=== PATIENT | male | born 1960 | race Caucasian/White ===

== ENCOUNTER 2018-11-30 08:04 | Emergency (ER) | payer SELFPAY ==
[2018-11-30] MEDS ORDERED: Sodium Chloride 0.9% 1,000 ML IV ONE (08:07)
[2018-11-30] MEDS ORDERED: Ketorolac 30 MG/ML SDV IVPUSH ONE (08:07)
[2018-11-30] MEDS ORDERED: Ondansetron 4 MG/2 ML SDV IVPUSH ONE (08:07)
--- NOTE | 2018-11-30 08:08 | EDM.PDOC ---
ED HPI GENERAL MEDICAL PROBLEM - General Chief Complaint: Flank Pain Stated Complaint: STOMACH/SIDE PAIN Time Seen by Provider: 11/30/18 08:07 Source of Information: Reports: Patient - History of Present Illness INITIAL COMMENTS - FREE TEXT/NARRATIVE: HISTORY AND PHYSICAL: History of present illness: [A shunt presents with left lower quadrant pain 5 out of 10 radiating to the left flank worsened by movement better at rest had normal formed stool yesterday no fever nausea vomiting chills sweats no chest pain shortness breath headache dizziness palpitation no bowel or urine symptoms ] Review of systems: As per history of present illness and below otherwise all systems reviewed and negative. Past medical history: As per history of present illness and as reviewed below otherwise noncontributory. Surgical history: As per history of present illness and as reviewed below otherwise noncontributory. Social history: No reported history of drug or alcohol abuse. Family history: As per history of present illness and as reviewed below otherwise noncontributory. Physical exam: HEENT: Atraumatic, normocephalic, pupils reactive, negative for conjunctival pallor or scleral icterus, mucous membranes moist, throat clear, neck supple, nontender, trachea midline. Lungs: Clear to auscultation, breath sounds equal bilaterally, chest nontender. Heart: S1S2, regular, negative for clicks, rubs, or JVD. Abdomen: Soft, nondistended, nontender. Negative for masses or hepatosplenomegaly. Negative for costovertebral tenderness. Pelvis: Stable nontender. Genitourinary: Deferred. Rectal: Deferred. Extremities: Atraumatic, negative for cords or calf pain. Neurovascular unremarkable. Neuro: Awake, alert, oriented. Cranial nerves II through XII unremarkable. Cerebellum unremarkable. Motor and sensory unremarkable throughout. Exam nonfocal. Diagnostics: []CBC CMP troponin lipase UA with culture Abdomen pelvis no contrast CT Therapeutics: []Renal saline Toradol Zofran Reglan Hydrochlorothiazide Line Vasotec I.V. MiraLAX Gas-X Reglan The counter symptomatic therapy such as fleets glycerin suppositories symmetrical Cipro 500 mg by mouth twice a day Impression: abdominal pain High blood pressure Definitive disposition and diagnosis as appropriate pending reevaluation and review of above. Left Lower Abdomen Pain Score (Numeric/FACES): 10 - Related Data Allergies Allergy/AdvReac Type Severity Reaction Status Date / Time Penicillins Allergy Other Verified 11/30/18 08:20 Home Meds: Home Meds Omeprazole 20 mg PO DAILY 11/30/18 [History] ED ROS GENERAL - Review of Systems Review Of Systems: See Below ED EXAM, GENERAL - Physical Exam Exam: See Below Course - Vital Signs Last Recorded V/S: Last Vital Signs Temp 96.1 F 11/30/18 08:15 Pulse 110 H 11/30/18 08:15 Resp 20 11/30/18 08:15 BP 150/118 H 11/30/18 10:03 Pulse Ox 99 11/30/18 08:15 - Orders/Labs/Meds Orders: Active Orders 24 hr Category Date Time Status CULTURE URINE [RM] Stat Lab 11/30/18 08:57 Received Labs: Laboratory Tests 11/30/18 11/30/18 11/30/18 Range/Units 08:23 08:23 08:57 WBC 6.97 (4.0-11.0) K/uL RBC 4.59 (4.50-5.90) M/uL Hgb 15.7 (13.0-17.0) g/dL Hct 44.3 (38.0-50.0) % MCV 96.5 (80.0-98.0) fL MCH 34.2 H (27.0-32.0) pg MCHC 35.4 (31.0-37.0) g/dL RDW Std Deviation 44.0 (28.0-62.0) fl RDW Coeff of Donnie 13 (11.0-15.0) % Plt Count 220 (150-400) K/uL MPV 9.20 (7.40-12.00) fL Neut % (Auto) 52.4 (48.0-80.0) % Lymph % (Auto) 35.3 (16.0-40.0) % Dooly % (Auto) 10.3 (0.0-15.0) % Eos % (Auto) 1.6 (0.0-7.0) % Baso % (Auto) 0.4 (0.0-1.5) % Neut # (Auto) 3.7 (1.4-5.7) K/uL Lymph # (Auto) 2.5 H (0.6-2.4) K/uL Dooly # (Auto) 0.7 (0.0-0.8) K/uL Eos # (Auto) 0.1 (0.0-0.7) K/uL Baso # (Auto) 0.0 (0.0-0.1) K/uL Nucleated RBC % 0.0 /100WBC Nucleated RBCs # 0 K/uL Sodium 137 (136-148) mmol/L Potassium 3.8 (3.5-5.1) mmol/L Chloride 102 (98-107) mmol/L Carbon Dioxide 21.4 (21.0-32.0) mmol/L BUN 11 (7.0-18.0) mg/dL Creatinine 1.0 (0.8-1.3) mg/dL Est Cr Clr Drug Dosing 66.38 mL/min Estimated GFR (MDRD) > 60.0 ml/min Glucose 103 (74-106) mg/dL Calcium 9.5 (8.5-10.1) mg/dL Total Bilirubin 0.7 (0.2-1.0) mg/dL AST 35 (15-37) IU/L ALT 46 (14-63) IU/L Alkaline Phosphatase 57 (46-116) U/L Troponin I < 0.050 (0.000-0.056) ng/mL Total Protein 7.9 (6.4-8.2) g/dL Albumin 3.9 (3.4-5.0) g/dL Globulin 4.0 (2.6-4.0) g/dL Albumin/Globulin Ratio 1.0 (0.9-1.6) Lipase 75 (73-393) U/L Urine Color YELLOW Urine Appearance CLEAR Urine pH 5.5 (5.0-8.0) Ur Specific Goff 1.010 (1.001-1.035) Urine Protein NEGATIVE (NEGATIVE) mg/dL Urine Glucose (UA) NEGATIVE (NEGATIVE) mg/dL Urine Ketones NEGATIVE (NEGATIVE) mg/dL Urine Occult Blood NEGATIVE (NEGATIVE) Urine Nitrite NEGATIVE (NEGATIVE) Urine Bilirubin NEGATIVE (NEGATIVE) Urine Urobilinogen 0.2 (<2.0) EU/dL Ur Leukocyte Esterase NEGATIVE (NEGATIVE) Urine RBC 0-1 (0-2/HPF) Urine WBC 0-1 (0-5/HPF) Ur Epithelial Cells RARE (NONE-FEW) Urine Bacteria RARE (NEGATIVE) Urine Mucus LIGHT (NONE-MOD) Meds: Medications Discontinued Medications Generic Name Dose Route Start Last Admin Trade Name Yessica PRN Reason Stop Dose Admin Enalaprilat 1.25 mg 11/30/18 09:22 11/30/18 10:03 Vasotec Iv IVPUSH 11/30/18 09:23 1.25 mg ONETIME ONE Administration Hydrochlorothiazide 25 mg 11/30/18 09:23 11/30/18 10:00 Hydrochlorothiazide PO 11/30/18 09:24 25 mg ONETIME ONE Administration Sodium Chloride 1,000 mls @ 999 mls/hr 11/30/18 08:07 11/30/18 08:50 Normal Saline IV 11/30/18 09:07 999 mls/hr STAT ONE Administration Ketorolac Tromethamine 30 mg 11/30/18 08:07 11/30/18 08:24 Toradol IVPUSH 11/30/18 08:08 30 mg ONETIME ONE Administration Metoclopramide HCl 10 mg 11/30/18 09:23 11/30/18 10:01 Reglan IV 11/30/18 09:24 10 mg ONETIME ONE Administration Ondansetron HCl 8 mg 11/30/18 08:07 11/30/18 08:24 Zofran IVPUSH 11/30/18 08:08 8 mg ONETIME ONE Administration Departure - Departure Time of Disposition: 10:09 Disposition: Home, Self-Care 01 Condition: Good Clinical Impression: Abdominal pain - Discharge Information Referrals: PCP,Unknown [Primary Care Provider] - Forms: ED Department Discharge Additional Instructions: Medication as prescribed MiraLAX 17 g by mouth daily may benefit as far as helping moving bowels Fleets enemas or glycerin suppositories can assist with bowel movement Gas-X 4 times daily as needed return to ER if symptoms persist or worsen or if new concerning symptoms develop All up with primary care in 2 weeks recheck blood pressure [facility] [address] [place] [id number] The following information is given to patients seen in the emergency department who are being discharged to home. This information is to outline your options for follow-up care. We provide all patients seen in our emergency department with a follow-up referral. The need for follow-up, as well as the timing and circumstances, are variable depending upon the specifics of your emergency department visit. If you don't have a primary care physician on staff, we will provide you with a referral. We always advise you to contact your personal physician following an emergency department visit to inform them of the circumstance of the visit and for follow-up with them and/or the need for any referrals to a consulting specialist. The emergency department will also refer you to a specialist when appropriate. This referral assures that you have the opportunity for follow-up care with a specialist. All of these measure are taken in an effort to provide you with optimal care, which includes your follow-up. Under all circumstances we always encourage you to contact your private physician who remains a resource for coordinating your care. When calling for follow-up care, please make the office aware that this follow-up is from your recent emergency room visit. If for any reason you are refused follow-up, please contact the [facility] emergency department at and asked to speak to the emergency department charge nurse. - My Orders Last 24 Hours: My Active Orders 11/30/18 08:57 CULTURE URINE [RM] Stat - Assessment/Plan Last 24 Hours: My Active Orders 11/30/18 08:57 CULTURE URINE [RM] Stat
[2018-11-30 09:02] LABS: CHLORIDE,CL 102 mmol/L (98-107); SODIUM,NA 137 mmol/L (136-148)
--- NOTE | 2018-11-30 09:14 | CT ---
CT of the abdomen and pelvis without contrast. HISTORY: Pain TECHNIQUE: Axial CT images were obtained of the abdomen and pelvis without contrast. Coronal and sagittal reconstructions obtained. FINDINGS: The lung bases are clear, no pleural effusion. Tiny hypodensity noted within the dome of the liver, too small to fully characterized. The liver, spleen, adrenal glands, and pancreas otherwise appear unremarkable for noncontrast examination. The gallbladder appears normal. There is no bulky retroperitoneal lymphadenopathy. No abdominal ascites. There are no calcifications noted within the kidneys or along the courses of the ureters bilaterally. The large and small bowel are normal in caliber without evidence of obstruction. The appendix appears normal. There is no bulky pelvic lymphadenopathy. No free fluid. No free air. The urinary bladder appears normal. The visualized osseous structures appear normal. IMPRESSION: No acute findings within the abdomen or pelvis.
[2018-11-30] MEDS ORDERED: Enalaprilat 1.25 MG/ML SDV IVPUSH ONE (09:22)
[2018-11-30] MEDS ORDERED: Hydrochlorothiazide 25 MG Tab PO ONE (09:23)
[2018-11-30] MEDS ORDERED: Metoclopramide 10 MG/2 ML SDV IV ONE (09:23)
== END 2018-11-30 10:35 | disposition home or self-care (01) ==
LOC: MW.ED 08:04
DX: R10.32 Left lower quadrant pain (principal); I10 Essential (primary) hypertension; Z88.0 Allergy status to penicillin; Z79.899 Other long term (current) drug therapy
CPT/HCPCS: 36415; 74176; 80053; 81001; 83690; 84484; 85025; 87086; 96361; 96374; 96375; 99284; A9270; J1885; J2405; J2765; J7040; 99283

== ENCOUNTER 2019-01-04 06:12 | Day surgery (SDC) | payer OTHER ==
[~2019-01-04 06:12] MED LIST: Lactated Ringers 1,000 ML IV SCH
--- NOTE | 2019-01-04 07:30 | PCM.PREANE ---
Preanesthetic Assessment - Anesthesia/Transfusion/Family Hx Anesthesia History: Prior Anesthesia Without Reaction Family History of Anesthesia Reaction: No Transfusion History: No Prior Transfusion(s) Intubation History: Unknown - Review of Systems General: No Symptoms Pulmonary: No Symptoms Cardiovascular: No Symptoms Gastrointestinal: Abdominal Pain (flank pain), Other (brother had colon cancer) Neurological: No Symptoms Other: Reports: None - Physical Assessment NPO Status Date: 01/03/19 NPO Status Time: 18:32 O2 Sat by Pulse Oximetry: 97 Respiratory Rate: 18 Vital Signs: Last Vital Signs Temp 35.7 C 01/04/19 07:02 Pulse 82 01/04/19 07:02 Resp 18 01/04/19 07:02 BP 162/114 H 01/04/19 07:02 Pulse Ox 97 01/04/19 07:02 Height: 1.6 m Weight: 78.018 kg ASA Class: 2 Mental Status: Alert & Oriented x3 Airway Class: Mallampati = 2 Dentition: Reports: Missing Tooth/Teeth (most of the this upper and lower missing) Thyro-Mental Finger Breadths: 3 Mouth Opening Finger Breadths: 3 ROM/Head Extension: Full Lungs: Clear to Auscultation, Normal Respiratory Effort Cardiovascular: Regular Rate, Regular Rhythm - Allergies Allergies/Adverse Reactions: Allergies Allergy/AdvReac Type Severity Reaction Status Date / Time Penicillins Allergy Other Verified 01/02/19 15:29 - Blood Blood Available: No - Anesthesia Plan Pre-Op Medication Ordered: None - Acknowledgements Anesthesia Type Planned: MAC Pt an Appropriate Candidate for the Planned Anesthesia: Yes Alternatives and Risks of Anesthesia Discussed w Pt/Guardian: Yes Pt/Guardian Understands and Agrees with Anesthesia Plan: Yes PreAnesthesia Questionnaire HEENT History: Reports: Other (See Below) Other HEENT History: wears glasses Cardiovascular History: Reports: Hypertension Gastrointestinal History: Reports: GERD Musculoskeletal History: Reports: Osteoarthritis - Past Surgical History HEENT Surgical History: Reports: Eye Surgery Other HEENT Surgeries/Procedures: hx of left eye muscle surgery Other Dermatological Surgeries/Procedures: I&D of infection above knee - SUBSTANCE USE Smoking Status *Q: Current Every Day Smoker (1/2 ppd, trying to quit, no cigarettes last 2 days) Tobacco Use Within Last Twelve Months: Cigarettes Recreational Drug Use History: No - HOME MEDS Home Medications: Home Meds Omeprazole 20 mg PO DAILY 11/30/18 [History] Aspirin [Adult Low Dose Aspirin EC] 81 mg PO DAILY 01/02/19 [History] Ibuprofen 200 mg PO TID PRN 01/02/19 [History] Metoprolol Succinate 100 mg PO BEDTIME 01/02/19 [History] - CURRENT (IN HOUSE) MEDS Current Meds: Current Medications Lactated Ringer's (Ringers, Lactated) 1,000 mls @ 125 mls/hr IV ASDIRECTED [facility], [facility] Last Admin: 01/04/19 06:50 Dose: 125 mls/hr
[2019-01-04] MEDS ORDERED: Midazolam 1 MG/ML 2 ML SDV ONE (07:57)
[2019-01-04] MEDS ORDERED: Lidocaine 2% 5 ML SDV ONE (07:58)
[2019-01-04] MEDS ORDERED: fentaNYL 100 MCG/2 ML SDV ONE (07:58)
[2019-01-04] MEDS ORDERED: Propofol 200 MG/20 ML SDV ONE ×2 (07:58→07:59)
--- NOTE | 2019-01-04 08:49 | PCM.OPNOTE ---
- General Post-Op/Procedure Note Date of Surgery/Procedure: 01/04/19 Operative Procedure(s): Colonoscopy w/ cold descending colon, sigmoid and rectal polypectomy. Pre Op Diagnosis: Family history of colon cancer. Desire for colorectal cancer screening. Post-Op Diagnosis: Descending colon, sigmoid and rectal polyps Anesthesia Technique: MAC (ASA II) Primary Surgeon: Chris Rayo Condition: Good Free Text/Narrative:: DICTATION 900382 CPT CODE 66912
[2019-01-04] MEDS ORDERED: Lactated Ringers 1,000 ML IV SCH (09:00)
--- NOTE | 2019-01-04 09:30 | PCM48HPAN ---
Post Anesthesia Note - EVALUATION WITHIN 48HRS OF ANESTHETIC Vital Signs in Normal Range: Yes Patient Participated in Evaluation: Yes Respiratory Function Stable: Yes Airway Patent: Yes Cardiovascular Function Stable: Yes Hydration Status Stable: Yes Pain Control Satisfactory: Yes Nausea and Vomiting Control Satisfactory: Yes Mental Status Recovered: Yes Resp Rate: 18 - COMMENTS/OBSERVATIONS Free Text/Narrative:: no anesthesia problems
--- NOTE | 2019-01-04 11:55 | OR ---
SURGEON: Chris Rayo M.D. DATE OF PROCEDURE: 01/04/2019 OPERATION PERFORMED: Colonoscopy with cold descending colon, sigmoid colon, and rectal polypectomy. ANESTHESIA: MAC. ASA CLASSIFICATION: II. PREOPERATIVE DIAGNOSES: 1. Family history of colon cancer. 2. Desire for colorectal cancer screening. POSTOPERATIVE DIAGNOSIS: Descending colon, sigmoid colon, and rectal polyps. DESCRIPTION OF PROCEDURE: The patient was taken to the endoscopy room and positioned on the endoscopy table in the left lateral decubitus position. Time-out was called for appropriate identification of the patient and procedure. Monitored anesthesia care was provided. The colonoscope was inserted into the rectum and advanced without difficulty to the cecum. The cecum was identified by internal landmarks and external pressure. The colonoscope was retroflexed to visualize the ascending colon from below. The colonoscope was then straightened and slowly withdrawn. The cecum, ascending colon, hepatic flexure, transverse colon, and splenic flexure showed no tumors, polyps, diverticula, or angiodysplastic changes. One polyp was encountered in the descending colon and removed with cold biopsy forceps. The remainder of the descending colon showed no other polyps. No diverticular changes were noted in the sigmoid colon. One small polyp was encountered in the sigmoid colon and removed and sent separately for histologic analysis. This was also done with cold biopsy forceps. A third polyp was encountered in the rectum and also removed with cold biopsy forceps and sent for separate histologic analysis. Once the colonoscope was withdrawn to the distal rectum, it was retroflexed to visualize the anal orifice from above. No tumors, polyps, or acute hemorrhoidal changes were noted. The colonoscope was then straightened, the rectum aspirated, and the colonoscope removed. The patient tolerated the procedure well and was taken to recovery room in stable condition. GIANNA / MERI /[id number]
== END 2019-01-04 09:56 | disposition home or self-care (01) ==
LOC: MW.SDS 06:12
PROVIDERS: ATTEND Surgery
DX: Z12.11 Encounter for screening for malignant neoplasm of colon (principal); D12.4 Benign neoplasm of descending colon; D12.5 Benign neoplasm of sigmoid colon; D12.8 Benign neoplasm of rectum; I10 Essential (primary) hypertension; F17.210 Nicotine dependence, cigarettes, uncomplicated; K21.9 Gastro-esophageal reflux disease without esophagitis; Z88.0 Allergy status to penicillin; Z80.0 Family history of malignant neoplasm of digestive organs; Z79.82 Long term (current) use of aspirin; Z79.899 Other long term (current) drug therapy
CPT/HCPCS: 45380; J2001; J2250; J2704; J3010; J7120; 88305

== ENCOUNTER 2022-03-10 15:42 | Emergency (ER) | payer SELFPAY ==
[2022-03-10] MEDS ORDERED: Sodium Chloride 0.9% 1,000 ML IV ONE ×2 (15:50→15:53)
[2022-03-10 16:33] LABS: CARBON DIOXIDE,CO2 13.1 mmol/L (21.0-32.0)
[2022-03-10 17:06] LABS: CORONAVIRUS COVID-19 NAA NEGATIVE (NEGATIVE); INFLUENZA A NAA NEGATIVE (NEGATIVE); INFLUENZA B NAA NEGATIVE (NEGATIVE)
[2022-03-10] MEDS ORDERED: Meropenem 1 GM in Sodium Chloride 0.9% 100 ML IV ONE (17:12)
[2022-03-10] MEDS ORDERED: Sodium Chloride 0.9% 1,000 ML IV SCH (17:15)
[2022-03-10] MEDS ORDERED: Linezolid 600 MG in Premix Bag 1 BAG IV ONE (17:30)
[2022-03-10] MEDS ORDERED: Meropenem Premix 1 GM in Premix Bag 1 BAG IV ONE (18:30)
== END 2022-03-10 19:27 ==
LOC: MW.ED 15:42
DX: N17.9 Acute kidney failure, unspecified (principal); E87.2 Acidosis; R57.1 Hypovolemic shock; R19.7 Diarrhea, unspecified; I10 Essential (primary) hypertension; K21.9 Gastro-esophageal reflux disease without esophagitis; Z79.899 Other long term (current) drug therapy; Z88.0 Allergy status to penicillin; Z79.82 Long term (current) use of aspirin; Z20.822 Contact with and (suspected) exposure to COVID-19
CPT/HCPCS: 0240U; 36415; 70450; 71045; 71250; 74176; 80053; 81001; 82803; 83605; 83690; 83735; 84484; 85025; 87040; 87086; 93005; 96365; 96367; 99285; J2020; J2185; J7030